=== PATIENT | female | born 1975 | race Caucasian/White ===

== ENCOUNTER → 2020-02-15 13:52 | Outpatient (BNVA) | payer OTHER, SELFPAY | PROVIDERS: Family Provider Family Medicine; PCP Family Medicine; Visit Provider Obstetrics & Gynecology | DX: R87.810 Cervical high risk human papillomavirus (HPV) DNA test positive (principal); Z12.4 Encounter for screening for malignant neoplasm of cervix | CPT/HCPCS: 88175 ==

== ENCOUNTER 2020-05-11 13:21 | Outpatient (CLI) | payer OTHER, SELFPAY ==
--- NOTE | 2020-05-11 13:30 | MM_ITS ---
WS: [id number] BILATERAL DIGITAL SCREENING MAMMOGRAPHY WITH CAD CLINICAL INFORMATION: screening HISTORY: Screening mammogram. No current complaints. COMPARISON: [id number] TECHNIQUE: Bilateral CC and MLO views. FINDINGS: The breasts are composed of heterogeneous fibroglandular density tissue, which can limit the detectio n of small underlying mass lesions. A few stable nodular densities right breast. No suspicious mass, asymmetry, calcifications, or architectural distortion. No evidence of malignancy. MM/[place] [id number] IMPRESSION: BI-RADS: 2-Benign FOLLOW UP: 1 Year Follow-up Recommend return to annual screening mammography.
== END 2020-05-11 13:22 | disposition home or self-care (01) ==
LOC: RADSHAW 13:28
PROVIDERS: PCP Nurse Practitioner; Visit Provider Obstetrics & Gynecology
DX: Z12.31 Encounter for screening mammogram for malignant neoplasm of breast (principal)
CPT/HCPCS: 77067

== ENCOUNTER → 2020-06-14 15:50 | Outpatient (BNVA) | payer OTHER, SELFPAY | PROVIDERS: PCP Nurse Practitioner; Visit Provider Obstetrics & Gynecology | DX: R87.611 Atypical squamous cells cannot exclude high grade squamous intraepithelial lesion on cytologic smear of cervix (ASC-H) (principal); R87.610 Atypical squamous cells of undetermined significance on cytologic smear of cervix (ASC-US) | CPT/HCPCS: 81025; 88305 ==

== ENCOUNTER → 2020-07-27 12:59 | Outpatient (BNVA) | payer OTHER, SELFPAY | PROVIDERS: PCP Nurse Practitioner; Referring Provider Family Medicine; Visit Provider Specialist | DX: M17.12 Unilateral primary osteoarthritis, left knee (principal); M25.562 Pain in left knee | CPT/HCPCS: 73560; 73565 ==

== ENCOUNTER 2020-08-26 07:51 | Outpatient (CLI) | payer OTHER, SELFPAY ==
--- NOTE | 2020-08-26 08:00 | MR_ITS ---
WS: [id number] MRI LEFT KNEE NONCONTRAST TECHNIQUE: Axial PD, coronal PD fat sat, coronal PD, sagittal PD, and sagittal PD fat-sat images obta ined. CLINICAL INFORMATION: M25.569 - Pain in unspecified knee COMPARISON: None. FINDINGS: Distal quadriceps and patella tendons are intact. Hypertrophic patella. Small suprapatellar effusion. Mild prepatellar and infrapatellar soft tissue edema. Popliteal cyst measuring 3.5 x 0.8 x 4.6 cm AP by transverse by craniocaudal. Diffusely abnormal ACL with increased T1 and T2 signal abnormality in volving the anterior cruciate ligament with edema and mucoid degeneration. Diffuse soft tissue thicke dipesh with only a few normal visualized fibers. Findings likely due to high-grade subacute to chronic ACL injury. PCL is normal. Moderate degenerative arthritis involving the medial and lateral joint compartments with chronic thin dipesh of the meniscus. Chronic intrasubstance signal abnormality involving the medial and lateral meni scus. No acute appearing meniscal tears. 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 No subchondral edema. Retinaculum appears intact. Medial and lateral collateral ligaments appear intact. Small amount of edema along the superficial fi bers of the MCL can be seen with grade one injury. Lateral collateral ligament is normal. Moderate chondromalacia involving the medial and lateral joint compartments with joint space narrowin g. No significant subchondral edema. Mild hypertrophic changes along the joint line. MR/MR knee LT wo con* [id number] IMPRESSION: 1. Moderate to advanced tricompartmental arthritis left knee advanced for rachael ent this age. 2. Moderate suprapatellar effusion with small elongated popliteal cyst as desc ribed above. 3. 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 No significant subchondral edema. 4. Diffusely abnormal ACL with soft tissue thickening and signal abnormality w ith mucoid degeneration. Only a few visualized normal fibers. Findings likely d ue to subacute to chronic chronic high-grade ACL injury. PCL is normal. 5. Moderate chondromalacia involving the medial and lateral joint compartments with chronic meniscal thinning. No acute appearing meniscal tears. 6. Edema along the superficial fibers of the MCL consistent with grade one inj ury.
== END 2020-08-26 07:52 | disposition home or self-care (01) ==
LOC: RADSHAW 07:52
PROVIDERS: PCP Nurse Practitioner; Visit Provider Specialist
DX: R60.0 Localized edema (principal); M22.42 Chondromalacia patellae, left knee; M25.462 Effusion, left knee; M13.862 Other specified arthritis, left knee
CPT/HCPCS: 73721

== ENCOUNTER → 2020-12-05 15:08 | Outpatient (BNVA) | payer OTHER, SELFPAY | PROVIDERS: PCP Nurse Practitioner; Referring Provider Nurse Practitioner; Visit Provider Podiatrist Foot & Ankle Surgery | DX: M19.072 Primary osteoarthritis, left ankle and foot (principal); M79.672 Pain in left foot; G57.62 Lesion of plantar nerve, left lower limb | CPT/HCPCS: 73630 ==

== ENCOUNTER 2020-12-20 15:09 | Outpatient (CLI) | payer OTHER, SELFPAY ==
--- NOTE | 2020-12-20 15:20 | US_ITS ---
WS: [id number] ULTRASOUND SOFT TISSUES LEFT foot HISTORY: foot pain COMPARISON: None available. TECHNIQUE: 2-D and color Doppler imaging is submitted. There is a very small hypoechoic nodule measuring 5 x 4 mm between the second and third metatarsal he ads. Suspicious for small the role mild. No additional abnormalities are identified. US/US soft tissue/extremity [id number] IMPRESSION: Suspicious for small neuroma measuring 5 x 4 mm between the second and third me tatarsal heads.
== END 2020-12-20 15:10 | disposition home or self-care (01) ==
LOC: RAD 15:12
PROVIDERS: PCP Nurse Practitioner; Visit Provider Podiatrist Foot & Ankle Surgery
DX: G57.62 Lesion of plantar nerve, left lower limb (principal)
CPT/HCPCS: 76882

== ENCOUNTER → 2020-12-21 13:38 | Outpatient (BNVA) | payer OTHER, SELFPAY | PROVIDERS: PCP Nurse Practitioner; Referring Provider Family Medicine; Visit Provider Specialist | DX: M79.641 Pain in right hand (principal) | CPT/HCPCS: 73130 ==

== ENCOUNTER → 2020-12-26 13:47 | Outpatient (BNVA) | payer OTHER, SELFPAY | PROVIDERS: PCP Nurse Practitioner; Referring Provider Family Medicine; Visit Provider Specialist | DX: M19.012 Primary osteoarthritis, left shoulder (principal); M25.512 Pain in left shoulder | CPT/HCPCS: 73030 ==

== ENCOUNTER 2021-01-04 06:00 | Outpatient (RCR) | payer OTHER, SELFPAY | END 2021-01-28 23:59 | disposition home or self-care (01) | LOC: SOT 06:00 | PROVIDERS: PCP Nurse Practitioner; Referring Provider Specialist; Visit Provider Specialist | DX: M79.641 Pain in right hand (principal) | CPT/HCPCS: 97166 ==

== ENCOUNTER → 2021-07-31 15:56 | Outpatient (BNVA) | payer OTHER, SELFPAY | PROVIDERS: PCP Nurse Practitioner; Visit Provider Obstetrics & Gynecology | DX: D06.9 Carcinoma in situ of cervix, unspecified (principal) | CPT/HCPCS: 87624 ==

== ENCOUNTER → 2021-10-03 15:19 | Outpatient (BNVA) | payer OTHER, SELFPAY | PROVIDERS: PCP Nurse Practitioner; Referring Provider Nurse Practitioner; Visit Provider Podiatrist Foot & Ankle Surgery | DX: G57.62 Lesion of plantar nerve, left lower limb (principal) | CPT/HCPCS: 64455; J1100; J3301; J3490 ==

== ENCOUNTER → 2021-10-09 15:33 | Outpatient (BNVA) | payer OTHER, SELFPAY | PROVIDERS: PCP Nurse Practitioner; Visit Provider Internal Medicine Cardiovascular Disease | DX: I10 Essential (primary) hypertension (principal); M17.12 Unilateral primary osteoarthritis, left knee; F41.9 Anxiety disorder, unspecified; E66.9 Obesity, unspecified; F32.9 Major depressive disorder, single episode, unspecified; Z68.41 Body mass index [BMI] 40.0-44.9, adult | CPT/HCPCS: 99214 ==

== ENCOUNTER 2021-10-10 08:57 | Outpatient (RCR) | payer OTHER, SELFPAY | END 2021-10-28 23:59 | disposition home or self-care (01) | LOC: SOT 08:57 | PROVIDERS: PCP Nurse Practitioner; Referring Provider Nurse Practitioner; Visit Provider Orthopaedic Surgery Hand Surgery | DX: M79.641 Pain in right hand (principal) | CPT/HCPCS: 97018; 97022; 97035; 97110; 97124; 97140; 97165 ==

== ENCOUNTER 2021-10-16 09:26 | Outpatient (CLI) | payer OTHER, SELFPAY ==
--- NOTE | 2021-10-16 09:46 | MM_ITS ---
WS: [id number] VIEWS: MLO and CC views both breasts. 3D digital tomosynthesis is also included in this exam. Comparison made with prior exam of 02/13/2018, 05/08/2019, 05/11/2020.. Findings: There was no sign of mass, architectural distortion or suspicious calcification in either breast. He terogeneously dense MM/[place] [id number] Impression: BI-RADS: 2-Benign FOLLOW-UP: 1 Year Follow-up This mammogram was also analyzed by the Computer Aided Detection System R2 Imag [employer] Net [employer] Architect.
== END 2021-10-16 09:27 | disposition home or self-care (01) ==
LOC: RAD 09:27
PROVIDERS: PCP Nurse Practitioner; Visit Provider Nurse Practitioner
DX: Z12.31 Encounter for screening mammogram for malignant neoplasm of breast (principal)
CPT/HCPCS: 77063; 77067

== ENCOUNTER 2021-10-29 06:00 | Outpatient (RCR) | payer OTHER, SELFPAY | END 2021-11-28 23:59 | disposition home or self-care (01) | LOC: SOT 06:00 | PROVIDERS: PCP Nurse Practitioner; Referring Provider Orthopaedic Surgery Hand Surgery; Visit Provider Orthopaedic Surgery Hand Surgery | DX: M79.641 Pain in right hand (principal) | CPT/HCPCS: 97018; 97110; 97140 ==

== ENCOUNTER → 2021-11-07 15:42 | Outpatient (BNVA) | payer OTHER, SELFPAY | PROVIDERS: PCP Nurse Practitioner; Visit Provider Podiatrist Foot & Ankle Surgery | DX: G57.62 Lesion of plantar nerve, left lower limb (principal) | CPT/HCPCS: 64455; J1100; J3301; J3490 ==

== ENCOUNTER → 2021-12-19 15:11 | Outpatient (BNVA) | payer OTHER, SELFPAY | PROVIDERS: PCP Nurse Practitioner; Visit Provider Podiatrist Foot & Ankle Surgery | DX: G57.62 Lesion of plantar nerve, left lower limb (principal); M79.672 Pain in left foot | CPT/HCPCS: 99213 ==

== ENCOUNTER → 2022-01-10 14:30 | Outpatient (BNVA) | payer OTHER, SELFPAY | PROVIDERS: PCP Nurse Practitioner; Visit Provider Obstetrics & Gynecology | DX: R87.610 Atypical squamous cells of undetermined significance on cytologic smear of cervix (ASC-US) (principal) | CPT/HCPCS: 81025; 88305 ==

== ENCOUNTER → 2022-03-21 13:10 | Outpatient (BNVA) | payer OTHER, SELFPAY | PROVIDERS: PCP Nurse Practitioner; Visit Provider Podiatrist Foot & Ankle Surgery | DX: G57.62 Lesion of plantar nerve, left lower limb (principal); M21.41 Flat foot [pes planus] (acquired), right foot; M21.42 Flat foot [pes planus] (acquired), left foot | CPT/HCPCS: 99213; 99214 ==

== ENCOUNTER → 2022-04-03 14:29 | Outpatient (BNVA) | payer OTHER, SELFPAY | PROVIDERS: PCP Nurse Practitioner; Referring Provider Nurse Practitioner; Visit Provider Specialist | DX: G56.13 Other lesions of median nerve, bilateral upper limbs (principal) | CPT/HCPCS: 95910; 95912 ==

== ENCOUNTER → 2022-06-07 11:50 | Outpatient (BNVA) | payer OTHER, SELFPAY | PROVIDERS: PCP Nurse Practitioner; Referring Provider Nurse Practitioner; Visit Provider Specialist | DX: G56.13 Other lesions of median nerve, bilateral upper limbs (principal); G56.03 Carpal tunnel syndrome, bilateral upper limbs | CPT/HCPCS: 95861 ==

== ENCOUNTER → 2022-09-26 15:25 | Outpatient (BNVA) | payer OTHER, SELFPAY | PROVIDERS: PCP Nurse Practitioner; Visit Provider Podiatrist Foot & Ankle Surgery | DX: G57.62 Lesion of plantar nerve, left lower limb (principal); M21.41 Flat foot [pes planus] (acquired), right foot; M21.42 Flat foot [pes planus] (acquired), left foot | CPT/HCPCS: 99213 ==

== ENCOUNTER → 2023-02-21 15:02 | Outpatient (BNVA) | payer OTHER, SELFPAY | PROVIDERS: PCP Nurse Practitioner; Visit Provider Internal Medicine Cardiovascular Disease | DX: I11.9 Hypertensive heart disease without heart failure (principal) | CPT/HCPCS: 99214 ==

== ENCOUNTER 2023-04-19 08:46 | Outpatient (CLI) | payer OTHER, SELFPAY ==
--- NOTE | 2023-04-19 08:58 | MM_ITS ---
WS: [id number] Bilateral screening 3D tomosynthesis digital mammogram, 04/19/2023 Clinical Data: SCREENING Comparison: 10/16/2021, 05/11/2020, 05/08/2019, 04/11/2018, 02/13/2018. Findings: The breast parenchymal pattern shows fat replacement. No spiculated masses or clustered calcification s are seen. There are no secondary signs of carcinoma. Impression: 1. Negative bilateral mammogram unchanged. 2. Recommend annual screening mammograms. MM/[place] [id number] BIRADS: 1-Negative FOLLOW UP: 1 Year Follow-up The CAD dump grounds checker was used.
== END 2023-04-19 08:47 | disposition home or self-care (01) ==
LOC: RAD 08:47
PROVIDERS: PCP Nurse Practitioner; Visit Provider Nurse Practitioner
DX: Z12.31 Encounter for screening mammogram for malignant neoplasm of breast (principal)
CPT/HCPCS: 77063; 77067

== ENCOUNTER 2024-02-25 07:00 | Emergency (ER) | payer OTHER, SELFPAY ==
[2024-02-25] VITALS (24 sets, daily range): BP systolic 115–150; BP diastolic 70–105; PULSE 54–76; RESP 7–26; TEMP 36.9; O2SAT 93–99; BMI 39.5
--- NOTE | 2024-02-25 07:03 | XR_ITS ---
WS: [id number] Exam: XR chest 1V portable [id number] Date/Time of Exam: 02/25/2024 7:09 AM Reason For Exam: cp Comparison 07/03/2017. Findings: The lungs are clear and fully expanded. Costophrenic angles are sharp. No infiltrates. Bronchovascula r relief appears normal. Cardiac silhouette is unremarkable. Bony elements are intact. XR/XR chest 1V portable [id number] IMPRESSION: Unremarkable chest radiograph.
--- NOTE | 2024-02-25 07:05 | ECG_ITS ---
[facility] Test Date: 2024-02-25 Pat Name: Sofie Angeles Department: Room: Gender: Female Ccnp: : 1975 Requested By: Cleo Swift Order Number: [id number] Nikhil MD: Rob Urban M.D. Measurements Intervals [place] Rate: 72 P: 50 NE: 162 QRS: 12 QRSD: 104 T: 55 QT: 382 QTc: 420 Interpretive Statements SINUS RHYTHM LOW QRS VOLTAGE IN PRECORDIAL LEADS [QRS DEFLECTION < 1.0 mV IN CHEST LEADS] No previous ECG available for comparison Electronically Signed On 02-25-2024 8:27:15 CDT by Rob Urban M.D. [id number] f
--- NOTE | 2024-02-25 07:13 | ED_ITS ---
HPI - Chest Pain 2 General: Chief Complaint: Chest Pain Stated Complaint: CP Time Seen by Provider: 02/25/24 07:03 Source: patient Mode of arrival: ambulatory Limitations: no limitations History of Present Illness: 48-year-old female states she been havin g chest pain over the last couple hours. States she feels like it is stress-induced she states she been under a lot of stress overnight at work. States the pain is a sharp pain left chest she denies any shortness of breath denies any nausea or vomiting. Rates pain a 2 out of 10 currently Associated symptoms: Deny abdominal pain, dyspnea, fever(s), nausea or vomiting Related Data Home Medications Medication Instructions Recorded Confirmed [id number] 250 1 tab PO Q6H PRN Headache 02/21/23 02/25/24 mg-250 mg-65 mg tablet (Excedrin Extra Strength) fluticasone propionate 50 2 spray intranasal DAILY PRN 02/21/23 02/25/24 mcg/actuation nasal allergies spray,suspension (Flonase Allergy Relief) cetirizine 10 mg tablet 10 mg PO DAILY PRN allergies 02/25/24 02/25/24 Previous Rx's Medication Instructions Recorded nitroglycerin 0.4 mg sublingual 0.4 mg sublingual Q5M PRN chest 08/25/20 tablet (Nitrostat) pain #90 tabs lisinopril 20 1 tab PO DAILY #30 tabs 11/19/23 mg-hydrochlorothiazide 25 mg tablet Allergies Allergy/AdvReac Type Severity Reaction Status Date / Time No Known Allergies Allergy Verified 09/26/22 15:27 Review of Systems 2 Const: Denies: fever(s), chills, body aches or change in appetite ENMT: Denies: throat pain or dental pain Card: Reports: chest pain Resp: Denies: dyspnea GI: Denies: abdominal pain, nausea, vomiting or diarrhea Musc: Denies: neck pain or back pain Skin/Breast: Denies: rash Neuro: Denies: headache(s) PFSH ED 2 PFSH: Medical History JAZZMINE III (cervical intraepithelial neoplasia grade III) with severe dysplasia Diagnosed at time of LEEP on 10/17/2014-patient undergoing follow-up Pap smears Chronic hypertension Diagnosed in 2019 and is on medication and follows up with her primary care provider. 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 Anxiety and depression Diagnosed in 2013 and sees a therapist and follows up with Dr. Johnson a psychiatrist. She was started on medication in 2019 and symptoms are well controlled on this. No pertinent past medical history Denies diabetes,asthma, seizures, DVT/PE [facility] [place] Surgical History S/P cholecystectomy Laparoscopic procedure on 06/11/[address] Garcia for gallstones S/P LEEP 10/07/2014--[place] [facility] [place] Domin[place] for moderate dysplasia on biopsy. Pathology showed the posterior lip of cervix contained moderate dysplasia-JAZZMINE 2 with free margins. The anterior lip contained severe dysplasia-JAZZMINE 3-->one of the lateral margins showed dysplastic changes extending into it. Endocervical curettage done after LEEP showed benign endocervical mucosa without any atypia/dysplasia. Post operative course was uncomplicated. S/P tendon repair S/P tympanostomy tube placement as a child Status post ORIF of fracture of ankle 2002, right ankle Family History Mother Lung cancer Social History Smoking and tobacco/nicotine status: never used tobacco/nicotine Physical Exam 2 Const: COMMON NORMALS: no acute distress, patient oriented x3 and healthy appearing HENMT: COMMON NORMALS: normocephalic and atraumatic HEAD & SCALP: n ormocephalic and atraumatic Eye: COMMON NORMALS: Equal, round and reactive pupils present and EOMs intact bilaterally PUPIL: Yes Equal, round and reactive pupils present Neck/C-Spine: COMMON NORMALS: full ROM and supple Chest: COMMONS NORMALS: normal inspection of the chest and normal palpation of entire chest wall Resp: COMMON NORMALS: normal respiratory effort, No retractions, No use of accessory muscles and clear to auscultation bilaterally AUSCULTATION: clear to auscultation bilaterally Cardio: COMMON NORMALS: regular rate, regular rhythm and No murmurs present (Cardio) RATE: regular rate RHYTHM: regular rhythm GI: COMMON NORMALS: Normal to inspection, nondistended, normoactive bowel sounds present, Soft to palpation, non-tender and no masses PALPATION: Yes Soft to palpation Extremity: COMMON NORMALS: normal to inspection and full ROM Neuro: COMMON NORMALS: patient oriented x3, moves all extremities and no focal motor deficits Psych: COMMON NORMALS: mental status grossly normal, Normal thought process present and cooperative THOUGHT PROCESS: Normal thought process present Skin: COMMON NORMALS: no rashes or lesions noted and no wounds GENERAL SKIN EXAM: no rashes or lesions noted Course 2 Vital Signs: Vital signs: Vital Signs Temperature 98.5 F 02/25/24 07:09 Pulse Rate 65 02/25/24 09:00 Respiratory Rate 16 02/25/24 09:00 Blood Pressure 127/71 02/25/24 09:00 Pulse Oximetry 95 02/25/24 09:00 Oxygen Delivery Me thod Room Air 02/25/24 08:35 MDM - Chest Pain Medical Decision Making Patient presents here with chest pains atypical in nature she has been pain-free here initial repeat troponins are negative she has no signs of ACS dissection or pulmonary embolism she is stable for discharge follow-up with PCP return if worsening. Medical Records I reviewed the patient's medical records. Lab Data I reviewed the patient's lab results. 02/25/24 07:10 02/25/24 07:10 Radiology Impressions Chest X-Ray 02/25/24 07:03 IMPRESSION: Unremarkable chest radiograph. Laboratory Results WBC 6.05 10^3/uL (3.29-11.43) 02/25/24 07:10 RBC 4.45 10^6/uL (3.85-5.65) 02/25/24 07:10 Hgb 12.80 g/dL (11.27-16.99) 02/25/24 07:10 Hct 39.9 % (36-47) 02/25/24 07:10 MCV 89.7 fl (85-98) 02/25/24 07:10 MCH 28.8 pg (27-33) 02/25/24 07:10 MCHC 32.1 g/dL (30-55) 02/25/24 07:10 RDW 13.2 % (12.1-15.1) 02/25/24 07:10 Plt Count 308 10^3/cmm (157-399) 02/25/24 07:10 MPV 9.5 fL (7.4-10.4) 02/25/24 07:10 Neut % (Auto) 53.8 % 02/25/24 07:10 Lymph % (Auto) 36.2 % 02/25/24 07:10 [place] % (Auto) 6.6 % 02/25/24 07:10 Eos % (Auto) 2.3 % 02/25/24 07:10 Baso % (Auto) 0.8 % 02/25/24 07:10 Neut # (Auto) 3.25 10^3/uL (1.8-7.7) 02/25/24 07:10 Lymph # (Auto) 2.2 10^3/uL (0.8-4.8) 02/25/24 07:10 [place] # (Auto) 0.4 10^3/uL (0.2-0.9) 02/25/24 07:10 Eos # (Auto) 0.1 10^3/uL (0.0-0.8) 02/25/24 07:10 Baso # (Auto) 0.1 10^3/uL (0.0-0.1) 02/25/24 07:10 Nucleated RBC % (auto) 0 % 02/25/24 07:10 Nucleated RBCs # 0.0 /100WBC 02/25/24 07:10 Sodium 136 mmol/L (136-145) 02/25/24 07:10 Potassium 4.1 mmol/L (3.5-5.1) 02/25/24 07:10 Chloride 100 mmol/L (98-107) 02/25/24 07:10 Carbon Dioxide 24 mmol/L (22-29) 02/25/24 07:10 Anion Gap 16.1 (5-19) 02/25/24 07:10 BUN 16 mg/dL (6-20) 02/25/24 07:10 Creatinine 0.6 mg/dL (0.5-0.9) 02/25/24 07:10 GFR Calculation 107.6 mL/min (90-130) 02/25/24 07:10 Glucose 114 mg/dL (65-115) 02/25/24 07:10 Calculated Osmolality 284 mOsm/kg (285-295) L 02/25/24 07:10 Calcium 9.2 mg/dL (8.5-10.5) 02/25/24 07:10 Total Bilirubin 0.4 mg/dL (0.15-1.2) 02/25/24 07:10 AST 31 U/L (0-32) 02/25/24 07:10 ALT 28 U/L (0-33) 02/25/24 07:10 Alkaline Phosphatase 87 U/L (35-105) 02/25/24 07:10 Troponin T Baseline < 6 ng/L (0-10) 02/25/24 07:10 Troponin T 120 Minute 6.00 ng/L (0-10) 02/25/24 08:47 Delta Troponin T 0.35263 ABS# (0-10) 02/25/24 08:47 Total Protein 7.4 g/dL (6.6-8.7) 02/25/24 07:10 Albumin 4.5 g/dL (3.5-5.2) 02/25/24 07:10 Globulin 2.9 g/dL (1.3-4.6) 02/25/24 07:10 All radiology interpretation(s) finalized by discharge EKG Data EKG 1: I personally reviewed and interpreted this EKG as follows: EKG interpretation date: 02/25/24 EKG interpretation time: 07:05 Interpretation: nsr hr [address] or t wave abnormalities qrs 104 qtc 407 Clincial Decision Support The following clinical decision support tools were used to aid in care of the patient HEART Score -> History: Slightly Suspicous, EKG: Normal, Age: 45-64 yrs, Risk Factors: 1 or 2 Risk Factors, Troponin: Baseline Trop <16 ng/L. Resulting HEART Score: 2. Discharge Plan Discharge Patient Disposition: Home Clinical Impression: Chest pain Condition: Stable Prescriptions: No Action fluticasone propionate [Flonase Allergy Relief] 50 mcg/actuation spray,suspension 2 spray intranasal DAILY PRN (Reason: allergies) Excedrin Extra Strength 250-250-65 mg tablet 1 tab PO Q6H PRN (Reason: Headache) nitroglycerin [Nitrostat] 0.4 mg tablet, sublingual 0.4 mg sublingual Q5M PRN (Reason: chest pain) Qty: 90 1RF Rx Instructions: do not exceed 3 doses per episode lisinopril-hydrochlorothiazide 20-25 mg tablet 1 tab PO DAILY Qty: 30 4RF cetirizine 10 mg Tablet 10 mg PO DAILY PRN (Reason: allergies) Discharge Orders: Discharge ED (Routine); Ordered 02/25/24 Ordered By: Cleo Swift Referrals: Edna Avery FNP [Primary Care Provider] - 4-7 days Discharge Diet: Advance as tolerated Discharge Activity: Resume usual activity Patient Instructions: Chest Pain (ED) Stand Alone Forms: Work/School Release Coding Level of Care Code ED Custom Van Converter for Petey eHller
[2024-02-25] MEDS: aspirin 81 mg Chew Tablet 324 MG PO (07:19)
[2024-02-25 07:24] LABS: Basophils # 0.1 10^3/uL (0.0-0.1); Basophils % 0.8 %; Eosinophils # 0.1 10^3/uL (0.0-0.8); Eosinophils % 2.3 %; Hematocrit 39.9 % (36-47); Lymphocytes # 2.2 10^3/uL (0.8-4.8); Lymphocytes % 36.2 %; Mean Corpuscular HGB Conc 32.1 g/dL (30-55); Mean Corpuscular Hemoglobin 28.8 pg (27-33); Mean Corpuscular Volume 89.7 fl (85-98); Mean Platelet Volume 9.5 fL (7.4-10.4); Monocytes # 0.4 10^3/uL (0.2-0.9); Monocytes % 6.6 %; Neutrophils # 3.25 10^3/uL (1.8-7.7); Neutrophils % 53.8 %; Nucleated Red Blood Cells % 0 %; Platelet Count 308 10^3/cmm (157-399); Red Blood Count 4.45 10^6/uL (3.85-5.65); Red Cell Distribution Width 13.2 % (12.1-15.1); White Blood Count 6.05 10^3/uL (3.29-11.43)
[2024-02-25 07:39] LABS: Alanine Aminotransferase 28 U/L (0-33); Albumin Level 4.5 g/dL (3.5-5.2); Alkaline Phosphatase 87 U/L (35-105); Blood Urea Nitrogen 16 mg/dL (6-20); Calcium 9.2 mg/dL (8.5-10.5); Carbon Dioxide 24 mmol/L (22-29); Chloride 100 mmol/L (98-107); Creatinine Clr Calc Pharmacy 158.1606; Globulin 2.9 g/dL (1.3-4.6); Glomerular Filtration Rate 107.6 mL/min (90-130); Glucose 114 mg/dL (65-115); Osmolality Calculated 284 mOsm/kg (285-295); Sodium 136 mmol/L (136-145); Total Bilirubin 0.4 mg/dL (0.15-1.2); Total Protein 7.4 g/dL (6.6-8.7)
[2024-02-25 07:41] LABS: Troponin(5th) Baseline < 6 ng/L (0-10)
[2024-02-25 07:42] LABS: Anion Gap 16.1 (5-19); Aspartate Amino Transferase 31 U/L (0-32); Potassium 4.1 mmol/L (3.5-5.1)
--- NOTE | 2024-02-25 08:52 | PC.PHAR ---
[facility] but knows what [facility] she takes.
--- NOTE | 2024-02-25 09:03 | ECG_ITS ---
[facility] Test Date: 2024-02-25 Pat Name: Sofie Angeles Department: Room: Gender: Female Financial Services Director: : 1975 Requested By: Cleo Swift Order Number: [id number] Nikhil MD: Rob Urban M.D. Measurements Intervals [place] Rate: 62 P: 52 ND: 165 QRS: 37 QRSD: 108 T: 58 QT: 409 QTc: 417 Interpretive Statements SINUS RHYTHM Compared to ECG 02/25/2024 07:05:47 No significant changes Electronically Signed On 02-25-2024 10:02:06 CDT by Rob Urban M.D. [email or web address].Scil Proteinslawrence county hospitalSunnytrail Insight Labswvumedicine barnesville hospitalEloxx/store/OM/[id number]
[2024-02-25 09:08] LABS: Troponin 5 2HR Delta 0.00001 ABS# (0-10)
== END 2024-02-25 10:03 | disposition home or self-care (01) ==
PROVIDERS: Emergency Provider Emergency Medicine; PCP Nurse Practitioner
DX: R07.9 Chest pain, unspecified (principal); I10 Essential (primary) hypertension
CPT/HCPCS: 36415; 71045; 80053; 84484; 85025; 93005; 99285

== ENCOUNTER 2024-03-03 06:00 | Outpatient (CLI) | payer OTHER, SELFPAY | END 2024-03-03 06:01 | disposition home or self-care (01) | LOC: RAD 03-04 13:39 | PROVIDERS: PCP Nurse Practitioner; Visit Provider Internal Medicine Cardiovascular Disease | DX: R07.89 Other chest pain (principal); I11.9 Hypertensive heart disease without heart failure; F41.9 Anxiety disorder, unspecified; F32.9 Major depressive disorder, single episode, unspecified | CPT/HCPCS: 99214 ==

== ENCOUNTER 2024-04-08 08:18 | Outpatient (CLI) | payer OTHER, SELFPAY ==
--- NOTE | 2024-04-08 | USCV_ITS ---
Sofie Angeles Age: 48 Gender: F : 1975 Exam Date: 04/08/2024 08:31 Ordering Phys: Sherine Alonso MD ([email or web address]) Technologist: RHONA Exam Location: [facility] – [place], [place] Indication: CHEST PAIN BP: 130 / 74 HR: 62 Rhythm: Sinus Technical Quality: Adequate MEASUREMENTS (Male / Female) Normal Values 2D ECHO LV Diastolic Diameter PLAX 5.0 cm 4.2 - 5.9 / 3.9 - 5.3 cm IVS Diastolic Thickness 1.3 cm 0.6 - 1.0 / 0.6 - 0.9 cm IVS Systolic Thickness 2.2 cm LVPW Diastolic Thickness 2.2 cm 0.6 - 1.0 / 0.6 - 0.9 cm LVPW Systolic Thickness 2.1 cm LVOT Diameter 2.0 cm LV Ejection Fraction 2D Teich 63.2 % LV Ejection Fraction MOD 4C 67.3 % LV Ejection Fraction MOD 2C 68.5 % LV Ejection Fraction 2C AL 70.2 % LA Diameter 2.7 cm RA Systolic Volume 4C AL 26.5 ml RA Systolic Volume 4C MOD 25.8 ml LA Sys Volume AL 48.8 cm cubed LA Sys Volume Index AL 19.9 cm cubed/m squared Aorta at Sinotubular Diameter 2.8 cm IVC Diameter 1.6 cm M-MODE LA Ao Ratio MM 0.9 AV Cusp Separation MM 1.7 cm DOPPLER AV Peak Velocity 138.0 cm/s LVOT Peak Velocity 118.0 cm/s AV Area Cont Eq vti 2.9 cm squared AV Area Cont Eq pk 2.6 cm squared MV Peak Velocity 126.0 cm/s MV Area PHT 3.7 cm squared Mitral E to A Ratio 1.7 TR Peak Velocity 138.0 cm/s TR Peak Gradient 7.6 mmHg TR Mean Velocity 120.0 cm/s TR Mean Gradient 5.9 mmHg TR Velocity Time Integral 45.5 cm TV Peak E Velocity 68.0 cm/s PV Peak Velocity 86.0 cm/s RV Ejection Time 0.4 s FINDINGS Left Ventricle Normal left ventricular size and systolic function, EF 70%.. No regional wall motion abnormalities. Right Ventricle The right ventricle is normal in size and function. Right Atrium The right atrium is normal in size. Left Atrium The left atrium is normal in size. Mitral Valve No gross abnormalities noted Aortic Valve No gross abnormalities noted Tricuspid Valve No gross abnormalities noted Pulmonic Valve No gross abnormalities noted Pericardium Normal pericardium without effusion. Aorta Normal ascending aorta dimension. IVC The inferior vena cava appears normal. CONCLUSIONS Normal left ventricular size and systolic function, EF 70%.. No regional wall motion abnormalities. Normal cardiac chamber sizes. No significant valvular lesions. No intracardiac masses. No pericardial effusion. No intracardiac shunt by color-flow Doppler examination. No similar previous studies are available for comparison Dr Sherine Alonso MD FACC (Electronically Signed) Final Date: 12 April 2024 20:58 S
== END 2024-04-08 08:19 | disposition home or self-care (01) ==
LOC: RAD 08:19
PROVIDERS: PCP Nurse Practitioner; Visit Provider Internal Medicine Cardiovascular Disease
DX: R06.09 Other forms of dyspnea (principal)
CPT/HCPCS: 93306

== ENCOUNTER 2024-04-28 14:22 | Outpatient (CLI) | payer OTHER, SELFPAY ==
--- NOTE | 2024-04-28 14:24 | MM_ITS ---
WS: [id number] BILATERAL 3D TOMOSYNTHESIS DIGITAL SCREENING MAMMOGRAPHY WITH CAD CLINICAL INFORMATION: SCREENING HISTORY: Screening mammogram. No current complaints. COMPARISON: 2022 TECHNIQUE: Bilateral CC and MLO views. FINDINGS: Scattered fibroglandular densities bilaterally. No suspicious focal mass, asymmetry, calcifications, or architectural distortion. No evidence of malignancy. Few stable incidental punctate calcifications MM/MM scr tomosynthesis [id number] IMPRESSION: DENSITY: There are scattered areas of fibroglandular density. BI-RADS: 2 - Benign. FOLLOW UP: 1 Year Follow-up Recommend return to annual screening mammography.
== END 2024-04-28 14:23 | disposition home or self-care (01) ==
LOC: RAD 14:22
PROVIDERS: PCP Nurse Practitioner; Visit Provider Nurse Practitioner
DX: Z12.31 Encounter for screening mammogram for malignant neoplasm of breast (principal); R92.323 Mammographic fibroglandular density, bilateral breasts; R92.1 Mammographic calcification found on diagnostic imaging of breast
CPT/HCPCS: 77063; 77067

== ENCOUNTER 2024-05-01 12:20 | Outpatient (CLI) | payer OTHER, SELFPAY ==
[2024-05-01 12:33] VITALS: BMI 38.7
--- NOTE | 2024-05-01 12:39 | ECG_ITS ---
[facility] Test Date: 2024-05-01 Pat Name: Sofie Angeles Department: Room: Gender: Female Material Mixer: : 1975 Requested By: Sherine Alonso Order Number: [id number] Nikhil MD: Sherine Alonso M.D. Interpretive Statements Lung unchanged pre/post procedure; Intraprocedure shortess of breath; Symptoms resoled by discharge PROCEDURE: At the baseline, the patient's blood pressure was 123/77 with a heart rate of 87. The baseline electrocardiogram showed normal sinus rhythm with incomplete right bundle branch block pattern. Poor R wave progression. Low voltage complexes in the precordial leads. The patient exercised for 7 minutes and 1 seconds on a [standard Manuel protocol]. Patient attained a maximum heart rate of 168 beats per minute(96% of the maximum predicted heart rate) with a blood pressure at the peak exercise of 175/77 mm Hg. The EKG at the peak exercise revealed some nonspecific ST-T changes. Patient did [not have any chest pain . Occasional PVCs were noted with the peak exercise. Nonspecific ST-T changes also were noted During the recovery phase, t the premature ventricular contractions gradually disappeared. Blood pressure at the end of the recovery phase was 124/64 mm Hg with a heart rate of 86 per minute. CONCLUSION: 1. Nonspecific EKG changes with the treadmill exercise 2. Normal heart rate and blood pressure response to exercise. Occasional exercise-induced PVCs. 3. Fair exercise tolerance, attained a maximum of 10.2 METs 4. The heart rate recovery rate( HRR)was 22-normal Electronically Signed On 05-09-2024 11:15:12 CERTIFIED FRAUD EXAMINER by Sherine Alonso M.D. [id number]
[2024-05-01 13:44] VITALS: BP 124/88; PULSE 83
== END 2024-05-01 12:21 | disposition home or self-care (01) ==
LOC: CDL 12:21
PROVIDERS: PCP Nurse Practitioner; Visit Provider Internal Medicine Cardiovascular Disease
DX: R07.9 Chest pain, unspecified (principal); R06.02 Shortness of breath
CPT/HCPCS: 93017